=== PATIENT | male | born 1955 | race Caucasian/White ===

== ENCOUNTER → 2023-12-10 10:50 | Outpatient (REF) | payer OTHER, SELFPAY ==
[2023-12-10 11:39] LABS: % Basophils 0.4 % (0-2); % Eosinophils 4.3 % (0-6); % Immature Granulocytes 0.4 % (0-0.5); % Lymphocytes 27.4 % (20.5-51.1); % Monocytes 8.1 % (1.7-9.3); % Neutrophils 59.4 % (42.2-75.2); Absolute Eosinophils 0.2 10^3/uL (0-0.7); Absolute Lymphocytes 1.5 10^3/uL (1.2-3.4); Absolute Monocytes 0.4 10^3/uL (0.1-0.6); Absolute Neutrophils 3.2 10^3/uL (1.4-6.5); Hematocrit 37.4 % (39.0-52.0); Hemoglobin 13.2 g/dL (13.0-18.0); Mean Corp Hgb Conc. 35.3 g/dL (33.0-37.0); Mean Corpuscular Hgb 32.8 pg (27.0-31.0); Mean Corpuscular Volume 92.8 fL (80.0-94.0); Mean Platelet Volume 9.8 fL (7.4-10.4); Nucleated Red Blood Cells % 0 % (-); Platelet Count 205 10^3/uL (130-400); Red Blood Cell Count 4.03 10^6/uL (4.70-6.10); Red Cell Dist. Width 12.3 % (11.5-14.5); White Blood Cell Count 5.3 10^3/uL (4.8-10.8)
[2023-12-10 11:47] LABS: Urine Albumin Negative (Neg - Trace); Urine Bilirubin Negative (Negative); Urine Character Clear (Clear); Urine Color Yellow; Urine Glucose Negative (Negative); Urine Ketone Negative (Negative); Urine Leukocyte Negative (Negative); Urine Nitrite Negative (Negative); Urine Occult Blood Negative (Negative); Urine Specific Gravity 1.015 (<1.030); Urine Urobilinogen Negative (Neg - 1+)
[2023-12-10 12:49] LABS: ALT (SGPT) 22 U/L (0-50); AST (SGOT) 25 U/L (17-59); Albumin 4.2 g/dl (3.5-5.0); Alkaline Phosphatase 98 U/L (38-126); Blood Urea Nitrogen 18 mg/dl (9-20); Calcium 9.7 mg/dl (8.4-10.2); Carbon Dioxide 27 mmol/L (22-30); Chloride 102 mmol/L (98-107); Glucose 86 mg/dl (70-99); HDL Cholesterol 37 mg/dl; LDL Cholesterol, Calculated 92 mg/dl; Potassium 4.9 mmol/L (3.5-5.1); Sodium 138 mmol/L (135-145); Total Bilirubin 0.7 mg/dl (0.2-1.3); Total Cholesterol 188 mg/dl (50-199); Total Protein 7.1 g/dl (6.3-8.2); Triglyceride 295 mg/dl (10-149); Very Low Density Lipoprotein 59 mg/dl (0-30); eGFR > 60.00
[2023-12-10 13:04] LABS: Vitamin D, 25-OH*** 42.1 ng/mL (30-80)
[2023-12-10 13:18] LABS: PSA, Total - Screen 0.37 ng/ml (0.0-4.0); TSH Reflex To Free T4 0.41 uIU/ml (0.47-4.68)
[2023-12-10 13:47] LABS: Free T4 1.47 ng/dl (0.78-2.19)
== END ==
LOC: REG 10:50
PROVIDERS: ATTENDING PHYSICIAN Nurse Practitioner Family
DX: R42 Dizziness and giddiness (principal); R51.9 Headache, unspecified; M54.50 Low back pain, unspecified; I10 Essential (primary) hypertension; R11.0 Nausea; Z86.69 Personal history of other diseases of the nervous system and sense organs; Z98.1 Arthrodesis status; Z01.89 Encounter for other specified special examinations; E55.9 Vitamin D deficiency, unspecified
CPT/HCPCS: 36415; 80053; 80061; 81003; 82306; 84439; 84443; 85025; G0103

== ENCOUNTER → 2023-12-14 15:27 | Outpatient (REF) | payer OTHER, SELFPAY | LOC: RAD 15:27 | PROVIDERS: ATTENDING PHYSICIAN Nurse Practitioner Family; REFERRING PHYSICIAN Psychiatry & Neurology Neurology | DX: R42 Dizziness and giddiness (principal); R51.0 Headache with orthostatic component, not elsewhere classified; I10 Essential (primary) hypertension | CPT/HCPCS: 70450 ==

== ENCOUNTER → 2024-11-28 03:36 | Outpatient (REF) | payer OTHER, MEDICARE, SELFPAY | LOC: CLAB 03:36 | PROVIDERS: ATTENDING PHYSICIAN Nurse Practitioner Family | DX: L03.90 Cellulitis, unspecified (principal); M70.22 Olecranon bursitis, left elbow | CPT/HCPCS: 87070; 87147; 87186; 87205 ==

== ENCOUNTER → 2024-11-28 15:47 | Outpatient (REF) | payer OTHER, MEDICARE, SELFPAY ==
[2024-11-28 16:49] LABS: % Basophils 0.4 % (0-2); % Eosinophils 2.1 % (0-6); % Immature Granulocytes 0.3 % (0-0.5); % Lymphocytes 18.6 % (20.5-51.1); % Monocytes 7.1 % (1.7-9.3); % Neutrophils 71.5 % (42.2-75.2); Absolute Eosinophils 0.2 10^3/uL (0-0.7); Absolute Lymphocytes 1.7 10^3/uL (1.2-3.4); Absolute Monocytes 0.6 10^3/uL (0.1-0.6); Absolute Neutrophils 6.4 10^3/uL (1.4-6.5); Hematocrit 34.1 % (39.0-52.0); Hemoglobin 11.8 g/dL (13.0-18.0); Mean Corp Hgb Conc. 34.6 g/dL (33.0-37.0); Mean Corpuscular Hgb 32.6 pg (27.0-31.0); Mean Corpuscular Volume 94.2 fL (80.0-94.0); Mean Platelet Volume 9.9 fL (7.4-10.4); Nucleated Red Blood Cells % 0 % (-); Platelet Count 272 10^3/uL (130-400); Red Blood Cell Count 3.62 10^6/uL (4.70-6.10); Red Cell Dist. Width 11.9 % (11.5-14.5)
[2024-11-28 17:07] LABS: Blood Urea Nitrogen 28 mg/dl (9-20); Calcium 9.7 mg/dl (8.4-10.2); Carbon Dioxide 20 mmol/L (22-30); Chloride 108 mmol/L (98-107); Glucose 94 mg/dl (70-99); Potassium 4.9 mmol/L (3.5-5.1); Sodium 140 mmol/L (135-145)
== END ==
LOC: REG 15:47
PROVIDERS: ATTENDING PHYSICIAN Nurse Practitioner Family
DX: L03.90 Cellulitis, unspecified (principal); M70.22 Olecranon bursitis, left elbow
CPT/HCPCS: 36415; 73080; 80048; 85025

== ENCOUNTER → 2024-12-01 15:05 | Outpatient (REF) | payer OTHER, SELFPAY ==
[2024-12-01 16:21] LABS: % Basophils 0.4 % (0-2); % Eosinophils 1.9 % (0-6); % Immature Granulocytes 0.2 % (0-0.5); % Monocytes 6.4 % (1.7-9.3); % Neutrophils 74.1 % (42.2-75.2); Absolute Eosinophils 0.2 10^3/uL (0-0.7); Absolute Lymphocytes 1.6 10^3/uL (1.2-3.4); Absolute Monocytes 0.6 10^3/uL (0.1-0.6); Absolute Neutrophils 6.7 10^3/uL (1.4-6.5); Hematocrit 34.7 % (39.0-52.0); Hemoglobin 12.3 g/dL (13.0-18.0); Mean Corp Hgb Conc. 35.4 g/dL (33.0-37.0); Mean Corpuscular Hgb 32.3 pg (27.0-31.0); Mean Corpuscular Volume 91.1 fL (80.0-94.0); Mean Platelet Volume 9.9 fL (7.4-10.4); Nucleated Red Blood Cells % 0 % (-); Platelet Count 265 10^3/uL (130-400); Red Blood Cell Count 3.81 10^6/uL (4.70-6.10); Red Cell Dist. Width 11.7 % (11.5-14.5); White Blood Cell Count 9.1 10^3/uL (4.8-10.8)
[2024-12-01 16:44] LABS: Blood Urea Nitrogen 25 mg/dl (9-20); Carbon Dioxide 18 mmol/L (22-30); Chloride 108 mmol/L (98-107); Glucose 82 mg/dl (70-99); Potassium 4.8 mmol/L (3.5-5.1); Sodium 137 mmol/L (135-145); eGFR > 60.00
== END ==
LOC: REG 15:05
PROVIDERS: ATTENDING PHYSICIAN Student in an Organized Health Care Education/Training Program; FAMILY PHYSICIAN Internal Medicine
DX: Z01.818 Encounter for other preprocedural examination (principal)
CPT/HCPCS: 36415; 80048; 85025; 93005

== ENCOUNTER 2024-12-02 06:16 | Day surgery (SDC) | payer OTHER, SELFPAY ==
--- NOTE | 2024-12-01 09:31 | PTCARENOTE ---
Abnormal eGFR 50.4, creat 1.5 collected 11/28/24, Pilar at Dr Regan office notified by email.
[2024-12-02] VITALS (8 sets, daily range): BP systolic 102–117; BP diastolic 68–73; BMI 28.6
--- NOTE | 2024-12-02 14:55 | W.IMMPOSTOP ---
Surgical Immed Post Op Note
-
Primary Surgeon: Capo Beckwith MD
Assisting Surgeon:
Pre-op Diagnosis: left elbow septic olecranon bursitis
Post-op Diagnosis: left elbow septic olecranon bursitis
Procedure Performed: irrigation and debridement left septic olecranon bursitis
Anesthesia Type: general
Specimen / Cultures: tissue samples X2, aerobic and anaerobic swabs
Estimated Blood Loss: 2mL
Complications: none apparent
Operative Findings: no purulence encountered, no proximal or distal extension
Operative dictation #: [id number]
== END 2024-12-02 15:39 | disposition home or self-care (01) ==
LOC: SDS 06:16
PROVIDERS: ATTENDING PHYSICIAN Student in an Organized Health Care Education/Training Program
DX: M71.122 Other infective bursitis, left elbow (principal); A49.01 Methicillin susceptible Staphylococcus aureus infection, unspecified site; S51.012A Laceration without foreign body of left elbow, initial encounter; W18.30XA Fall on same level, unspecified, initial encounter
CPT/HCPCS: 24105; 87070; 87075; 87147; 87176; 87186; 87205; 93005

== ENCOUNTER → 2025-05-12 09:30 | Outpatient (REF) | payer OTHER, SELFPAY ==
[2025-05-12 11:16] LABS: Hematocrit 39.3 % (39.0-52.0); Hemoglobin 13.6 g/dL (13.0-18.0); Mean Corp Hgb Conc. 34.6 g/dL (33.0-37.0); Mean Corpuscular Volume 94.5 fL (80.0-94.0); Nucleated Red Blood Cells % 0 % (-); Platelet Count 204 10^3/uL (130-400); Red Cell Dist. Width 12.1 % (11.5-14.5); Urine Character Clear (Clear)
[2025-05-12 12:11] LABS: ALT (SGPT) 20 U/L (0-50); AST (SGOT) 27 U/L (17-59); Albumin 4.6 g/dl (3.5-5.0); Alkaline Phosphatase 104 U/L (38-126); Blood Urea Nitrogen 22 mg/dl (9-20); Calcium 9.7 mg/dl (8.4-10.2); Carbon Dioxide 28 mmol/L (22-30); Chloride 99 mmol/L (98-107); Glucose 82 mg/dl (70-99); HDL Cholesterol 36 mg/dl; LDL Cholesterol, Calculated 107 mg/dl; Potassium 4.8 mmol/L (3.5-5.1); Sodium 134 mmol/L (135-145); Total Protein 8.1 g/dl (6.3-8.2); Very Low Density Lipoprotein 41 mg/dl (0-30); eGFR > 60.00
[2025-05-12 12:38] LABS: PSA, Total - Screen 0.44 ng/ml (0.0-4.0); TSH 0.78 uIU/ml (0.47-4.68)
== END ==
LOC: RAD 09:30
PROVIDERS: ATTENDING PHYSICIAN Specialist; FAMILY PHYSICIAN Internal Medicine; REFERRING PHYSICIAN Psychiatry & Neurology Neurology
DX: N20.0 Calculus of kidney (principal); I10 Essential (primary) hypertension; Z12.5 Encounter for screening for malignant neoplasm of prostate; F07.81 Postconcussional syndrome
CPT/HCPCS: 36415; 76770; 80053; 80061; 81003; 84443; 85025; G0103